=== PATIENT | male | born 1955 | race Caucasian/White ===

== ENCOUNTER 2018-06-21 03:31 | Inpatient (IN) | payer OTHER ==
[2018-06-21] MEDS: CEFTRIAXONE 1 GM/50 ML (PMX) 50 ML IVPB (05:06)
[2018-06-21 05:08] LABS: ABNORMAL IP MESSAGE 1; HEMATOCRIT 39.7 % (42.0-52.0); HEMOGLOBIN 13.5 g/dl (14.0-18.0); MEAN CORPUSCULAR HEMOGLOBIN 34.7 pg (29.0-33.0); MEAN CORPUSCULAR VOLUME 102.1 fl (82.0-101.0); MEAN PLATELET VOLUME 10.3 fl (7.4-10.4); PLATELET COUNT 235 10^3/UL (140-415); POSITIVE DIFF @See below; RED BLOOD COUNT 3.89 10^6/ul (4.70-6.10); RED CELL DISTRIBUTION WIDTH 12.7 % (11.5-14.5)
[2018-06-21 05:08] LABS: WHITE BLOOD COUNT 10.1 10^3/ul (4.8-10.8)
[2018-06-21 05:10] LABS: ADD MAN DIFF? YES
[2018-06-21 05:25] LABS: ALANINE AMINOTRANSFERASE 26 IU/L (13-69); ALBUMIN 3.3 g/dl (3.3-4.9); ALBUMIN/GLOBULIN RATIO 1.13; ALKALINE PHOSPHATASE 66 IU/L (42-121); ANION GAP 9 (5-13); ASPARTATE AMINO TRANSFERASE 25 IU/L (15-46); BILIRUBIN,INDIRECT 0.2 mg/dl (0-1.1); BILIRUBIN,TOTAL 0.2 mg/dl (0.2-1.3); BLOOD UREA NITROGEN 9 mg/dl (7-20); CALCIUM 8.6 mg/dl (8.4-10.2); CARBON DIOXIDE 28 mmol/L (21-31); CHLORIDE 102 mmol/L (97-110); CREATININE 0.99 mg/dl (0.61-1.24); Estimated GFR > 60 mL/min (>60); GLUCOSE 137 mg/dl (70-220); INR 1.14; PROTIME 14.7 Sec (11.9-14.9); PT RATIO 1.1; SODIUM 139 mmol/L (135-144); TOTAL PROTEIN 6.2 g/dl (6.1-8.1)
[2018-06-21 05:26] LABS: PARTIAL THROMBOPLASTIN TIME 32.6 Sec (23.0-35.0)
[2018-06-21] MEDS: morphine 10 MG INJ IV (05:40)
[2018-06-21] MEDS: SOD CHLORIDE 0.9% 1,000 ML IV (05:40)
[2018-06-21] MEDS: SOD CHLORIDE 0.9% 100 ML (05:55)
[2018-06-21] MEDS: IOHEXOL 300MG/ML 150 ML BTL (05:55)
[2018-06-21] MEDS: PANTOPRAZOLE IV 80 MG in SOD CHLORIDE 0.9% 100 ML IVPB (06:00)
[2018-06-21] MEDS ORDERED: ACETAMINOPHEN 325 MG TAB PO (06:30)
[2018-06-21 06:51] LABS: BAND NEUTROPHILS #M 4.6 10^3/ul (0.0-0.6); BAND NEUTROPHILS % (M) 46 % (0-4); EOSINOPHILS % (M) 6 % (0-7); LYMPHOCYTES #M 0.6 10^3/ul (0.8-2.9); LYMPHOCYTES % (M) 6 % (15-51); METAMYELOCYTES #M 0.2 10^3/ul (0.0-0.0); METAMYELOCYTES %M 2 % (0-0); MONOCYTE #M 1.5 10^3/ul (0.3-0.9); MONOCYTES % (M) 15 % (0-11); OVALOCYTES 1+ (0-0); PLATELET ESTIMATE NORMAL; POIKILOCYTOSIS 1+ (0-0); POLYCHROMASIA 1+ (0-0); REACTIVE LYMPHOCYTES #M 0.1 10^3/ul (0.0-0.0); REACTIVE LYMPHOCYTES% (M) 1 % (0-0); SEG NEUT #M 2.9 10^3/ul (1.6-7.5); SEGMENTED NEUTROPHILS (M) % 24 % (39-77); SMUDGE%M 24 % (0-0)
[2018-06-21] MEDS: METHYLPREDNISOLONE 125 MG INJ IV ×3 (09:33→21:18)
[2018-06-21] MEDS: PANTOPRAZOLE (EC) 40 MG TAB PO (09:33)
[2018-06-21] MEDS: MESALAMINE (EC) 400 MG CAP PO ×3 (09:33→21:18)
[2018-06-21] MEDS: DEXTROSE 5%-0.45% NACL 1,000 ML IV ×3 (09:33→21:18)
[2018-06-21] MEDS: METHYLPREDNISOLONE 125 MG INJ IM (09:56)
[2018-06-21 10:30] LABS: PROSTATE SPECIFIC ANTIGEN 1.4 ng/ml (0.0-4.0)
[2018-06-21] MEDS: morphine 2 MG INJ IV ×2 (10:42→21:19)
[2018-06-21] MEDS: ONDANSETRON 4 MG INJ IV (10:42)
[2018-06-21] MEDS: SUCRALFATE (100 MG/ML) 10ML CUP GTB ×3 (17:00→21:18)
[2018-06-21] MEDS: METOCLOPRAMIDE 10 MG INJ IV ×3 (17:17→23:55)
[2018-06-21] MEDS: BISACODYL (EC) 5 MG TAB PO (17:18)
[2018-06-21] MEDS: HYOSCYAMINE 0.125 MG SUBL TAB PO ×2 (17:19→21:18)
[2018-06-21] MEDS: MAGNESIUM CITRATE 300 ML BTL PO (18:30)
[2018-06-21] MEDS: POLYETHYLENE GLYCOL 3350 119 GM POWDER PO (18:30)
[2018-06-22 05:09] LABS: ADD MAN DIFF? NO
[2018-06-22 05:12] LABS: BASOPHIL # 0.1 10^3/ul (0.0-0.1); BASOPHILS % 0.9 % (0.0-2.0); HEMATOCRIT 38.6 % (42.0-52.0); HEMOGLOBIN 13.3 g/dl (14.0-18.0); LYMPHOCYTES # 0.6 10^3/ul (0.8-2.9); LYMPHOCYTES % 6.1 % (15.0-51.0); MEAN CORPUSCULAR HEMOGLOBIN 34.5 pg (29.0-33.0); MEAN CORPUSCULAR HGB CONC 34.5 g/dl (32.0-37.0); MEAN PLATELET VOLUME 10.5 fl (7.4-10.4); MONOCYTE # 0.4 10^3/ul (0.3-0.9); MONOCYTES % 3.8 % (0.0-11.0); NEUTROPHIL # 8.9 10^3/ul (1.6-7.5); NEUTROPHILS % 88.8 % (39.0-77.0); PLATELET COUNT 255 10^3/UL (140-415); POSITIVE DIFF @See below; RED BLOOD COUNT 3.86 10^6/ul (4.70-6.10); RED CELL DISTRIBUTION WIDTH 12.3 % (11.5-14.5)
[2018-06-22] MEDS: DEXTROSE 5%-0.45% NACL 1,000 ML IV ×2 (05:23→21:30)
[2018-06-22] MEDS: HYOSCYAMINE 0.125 MG SUBL TAB PO ×3 (05:24→21:31)
[2018-06-22] MEDS: METHYLPREDNISOLONE 125 MG INJ IV ×3 (05:24→21:30)
[2018-06-22] MEDS: POLYETHYLENE GLYCOL 3350 119 GM POWDER PO (05:24)
[2018-06-22] MEDS: METOCLOPRAMIDE 10 MG INJ IV ×4 (05:24→23:20)
[2018-06-22] MEDS: PANTOPRAZOLE (EC) 40 MG TAB PO (05:24)
[2018-06-22 06:24] LABS: ANION GAP 7 (5-13); BLOOD UREA NITROGEN 11 mg/dl (7-20); CALCIUM 8.6 mg/dl (8.4-10.2); CARBON DIOXIDE 27 mmol/L (21-31); CHLORIDE 103 mmol/L (97-110); CREATININE 0.78 mg/dl (0.61-1.24); Estimated GFR > 60 mL/min (>60); GLUCOSE 255 mg/dl (70-220); POTASSIUM 3.8 mmol/L (3.5-5.1); SODIUM 137 mmol/L (135-144)
[2018-06-22] MEDS: BISACODYL (EC) 5 MG TAB PO (08:31)
[2018-06-22] MEDS: SUCRALFATE (100 MG/ML) 10ML CUP GTB ×4 (09:00→21:30)
[2018-06-22] MEDS: MESALAMINE (EC) 400 MG CAP PO ×3 (09:00→21:31)
[2018-06-22 09:42] LABS: ANISOCYTOSIS 1+ (0-0); BAND NEUTROPHILS #M 4.4 10^3/ul (0.0-0.6); BAND NEUTROPHILS % (M) 44 % (0-4); BURR CELLS 1+ (0-0); GIANT THROMBO% (M) 2 % (0-0); LYMPHOCYTES #M 0.4 10^3/ul (0.8-2.9); LYMPHOCYTES % (M) 4 % (15-51); MONOCYTE #M 0.2 10^3/ul (0.3-0.9); MONOCYTES % (M) 2 % (0-11); PLATELET ESTIMATE NORMAL; POIKILOCYTOSIS 2+ (0-0); SEG NEUT #M 5.4 10^3/ul (1.6-7.5); SEGMENTED NEUTROPHILS (M) % 50 % (39-77); SMUDGE%M 49 % (0-0)
[2018-06-22] MEDS: FENTAnyl 50 MCG/ML VIAL (14:08)
[2018-06-22] MEDS: PROPOFOL 20 ML ×2 (14:08→14:09)
[2018-06-22] MEDS: morphine 2 MG INJ IV (21:31)
[2018-06-23] MEDS: DEXTROSE 5%-0.45% NACL 1,000 ML IV ×2 (01:00→11:00)
[2018-06-23] MEDS: METOCLOPRAMIDE 10 MG INJ IV ×2 (05:11→12:00)
[2018-06-23] MEDS: PANTOPRAZOLE (EC) 40 MG TAB PO (05:11)
[2018-06-23] MEDS: HYOSCYAMINE 0.125 MG SUBL TAB PO (05:11)
[2018-06-23] MEDS: METHYLPREDNISOLONE 125 MG INJ IV (05:11)
[2018-06-23] MEDS: morphine 2 MG INJ IV (05:12)
[2018-06-23] MEDS: SUCRALFATE (100 MG/ML) 10ML CUP GTB (09:29)
[2018-06-23] MEDS: MESALAMINE (EC) 400 MG CAP PO (09:29)
== END 2018-06-23 12:25 | disposition home or self-care (01) | DRG 386 ==
LOC: E/R 03:31 → MS1 06:01
PROC: 0DB98ZX Excision of Duodenum, Via Natural or Artificial Opening Endoscopic, Diagnostic (ICD-10-PCS; principal; 2018-06-22 11:45)
PROC: 0DB68ZX Excision of Stomach, Via Natural or Artificial Opening Endoscopic, Diagnostic (ICD-10-PCS; 2018-06-22 11:45)
PROC: 0DB48ZX Excision of Esophagogastric Junction, Via Natural or Artificial Opening Endoscopic, Diagnostic (ICD-10-PCS; 2018-06-22 11:45)
PROC: 0DBN8ZX Excision of Sigmoid Colon, Via Natural or Artificial Opening Endoscopic, Diagnostic (ICD-10-PCS; 2018-06-22 11:45)
DX: K51.40 Inflammatory polyps of colon without complications (principal); K92.1 Melena; K22.10 Ulcer of esophagus without bleeding; N40.0 Benign prostatic hyperplasia without lower urinary tract symptoms; R11.2 Nausea with vomiting, unspecified; F17.200 Nicotine dependence, unspecified, uncomplicated; K29.70 Gastritis, unspecified, without bleeding
CPT/HCPCS: 36415; 74177; 80048; 80053; 84153; 84154; 85025; 85610; 85730; 86850; 86900; 86901; 87045; 87075; 87177; 88305; 88312; 88313; 93005; 96374; 96375; 99217; 99285-25